=== PATIENT | female | born 2000 | race American Indian/Alaskan Native ===

== ENCOUNTER 2020-06-16 15:21 | Emergency (ER) | payer MEDICAID ==
[2020-06-16 15:31] VITALS: BP 119/81
--- NOTE | 2020-06-16 15:44 | Event Note ---
ED Screening Note Date of service: 06/16/20 Time: 15:42 ED Screening Note: The patient was evaluated in the emergency department for symptoms described in the history of present illness. He/she was evaluated in the context of the global COVID-19 pandemic, which necessitated consideration that the patient might be at risk for infection with the virus that causes COVID-19. Institutional protocols and algorithms that pertain to the evaluation of patients at risk for COVID-19 are in a state of rapid change based on information released by regulatory bodies including the CDC and federal and state organizations. These policies and algorithms were followed during the patient's care in the emergency department. Please note that these policies, procedures and recommendations changed on a rapid basis. 20-year-old -[place] female presents to the emergency room line of back pain and urinary frequency. Patient feels she may have a urinary tract infection. She reports that she is late for her menstrual cycle. She denies any fever chills no nausea no vomiting denies any abdominal pain no vaginal bleeding since vaginal discharge yesterday. This initial assessment/diagnostic orders/clinical plan/treatment(s) is/are subject to change based on patients health status, clinical progression and re- assessment by fellow clinical providers in the ED. Further treatment and workup at subsequent clinical providers discretion. Patient/guardian urged not to elope from the ED as their condition may be serious if not clinically assessed and managed. Initial orders include:
[2020-06-16 16:05] LABS: Bacteria,Urine 1+ /HPF (Negative); Bilirubin,Urine NEG (Negative); Blood,Urine NEG (Negative); Color,Urine Yellow (Yellow); HCG Qualitative,Urine Positive (Negative); Protein,Urine <15 mg/dL mg/dL (Negative); RBC,Urine < 1.0 /HPF (0.0-6.0); Urobilinogen,Urine < 2.0 mg/dL (<2.0); WBC,Urine < 1.0 /HPF (0.0-6.0)
== END 2020-06-16 20:30 | disposition left against medical advice (07) ==
LOC: ED 15:21
DX: Z53.21 Procedure and treatment not carried out due to patient leaving prior to being seen by health care provider (principal)
CPT/HCPCS: 81001; 81025

== ENCOUNTER 2020-06-17 06:59 | Emergency (ER) | payer MEDICAID ==
[2020-06-17 07:48] VITALS: BP 114/71
[2020-06-17 08:30] LABS: Bilirubin,Urine NEG (Negative); Blood,Urine NEG (Negative); Color,Urine Straw (Yellow); Mucus,Urine FEW /HPF; Protein,Urine <15 mg/dL mg/dL (Negative); Urobilinogen,Urine < 2.0 mg/dL (<2.0)
[2020-06-17 08:43] LABS: HCG Qualitative,Urine Positive (Negative)
--- NOTE | 2020-06-17 10:49 | Emergency Department Report ---
<ZURDO ARGUELLES - Last Filed: 06/17/20 10:45> ED General Adult HPI - General Chief complaint: Urogenital-Female Stated complaint: UTI Time Seen by Provider: 06/17/20 10:17 Source: patient Mode of arrival: Ambulatory Limitations: No Limitations - History of Present Illness Initial comments: 20-year-old -[place] female patient presents with complaints of intermittent low back pain and urinary frequency x5 days. She denies any current pain, dysuria/hematuria, vaginal discharge, vaginal bleeding, dyspareunia, nausea/vomiting/diarrhea, or fever/chills/sweats. She also denies any injuries to her back and states she has not tried any OTC medication. Patient states she believes she has a UTI. - Related Data Allergies Allergy/AdvReac Type Severity Reaction Status Date / Time No Known Allergies Allergy Unverified 06/16/20 15:31 ED Review of Systems Constitutional: denies: chills, diaphoresis, fever, malaise, weakness Respiratory: denies: cough, shortness of breath Cardiovascular: denies: chest pain Endocrine: denies: excessive sweating Gastrointestinal: denies: abdominal pain, nausea, vomiting, diarrhea, constipation Genitourinary: frequency. denies: urgency, dysuria, hematuria, discharge, abnormal menses, dyspareunia Musculoskeletal: denies: back pain Skin: denies: rash, lesions, change in color Hematological/Lymphatic: denies: swollen glands ED Past Medical Hx - Past Medical History Previous Medical History?: No - Surgical History Past Surgical History?: No - Social History Smoking Status: Never Smoker Substance Use Type: None ED Physical Exam - General Limitations: No Limitations General appearance: alert, in no apparent distress - Head Head exam: Present: atraumatic, normocephalic - Eye Eye exam: Present: normal appearance. Absent: scleral icterus - Respiratory Respiratory exam: Present: normal lung sounds bilaterally. Absent: respiratory distress - Cardiovascular Cardiovascular Exam: Present: regular rate - GI/Abdominal GI/Abdominal exam: Present: soft, normal bowel sounds. Absent: distended, tenderness, guarding, rebound, rigid - Back Exam Back exam: Present: full ROM. Absent: tenderness, CVA tenderness (R), CVA tenderness (L), paraspinal tenderness, vertebral tenderness - Neurological Exam Neurological exam: Present: alert, oriented X3, normal gait - Psychiatric Psychiatric exam: Present: normal affect, normal mood - Skin Skin exam: Present: warm, dry, intact, normal color. Absent: rash ED Medical Decision Making - Medical Decision Making 20-year-old -[place] female patient presents with complaints of inter mittent low back pain and urinary frequency x5 days. She denies any current pain, dysuria/hematuria, vaginal discharge, vaginal bleeding, dyspareunia, nausea/vomiting/diarrhea, or fever/chills/sweats. She also denies any injuries to her back and states she has not tried any OTC medication. Patient states she believes she has a UTI. LMP was 05/16/2020 per patient. UA is shows 4 WBCs without bacteria. Urine hCG is positive. No indication for ultrasound given physical exam and history. Recommend patient follow-up with [facility] for new -referrals provided. She is well-appearing, her vitals are normal, she is stable for discharge home. Discussed signs and symptoms that should prompt immediate return to the ED in detail with patient who verbalizes understanding. ED Disposition Clinical Impression: Urinary frequency, confirmed by positive urine test Disposition: DC-01 TO HOME OR SELFCARE Is pt being admited?: No Condition: Stable Instructions: (ED), Back Pain (ED) Referrals: [facility] [Provider Group] - 3-5 Days [facility] [Provider Group] - 3-5 Days <MY ROY - Last Filed: 06/19/20 22:26> ED Review of Systems ROS: Stated complaint: UTI Other details as noted in HPI ED Course Vital Signs 06/17/20 06/17/20 07:46 07:48 Temperature 98.9 F Pulse Rate 84 Respiratory 16 Rate Blood Pressure 114/71 O2 Sat by Pulse 99 Oximetry - Reevaluation(s) Reevaluation #1: 06/19/20 22:25 Please note that I am signing this chart administratively. This patient was not specifically discussed with myself while on shift, and I was available for consultation and evaluation while this patient was physically here in the emergency room under the care of the physician medical clerical assistant.. I also called the patient on her personal cell phone number, I left a voicemail for call back, with intentions to instruct the patient to return to the emergency room for sonographic evaluation. Critical care attestation.: If time is entered above; I have spent that time in minutes in the direct care of this critically ill patient, excluding procedure time. ED Disposition Is pt being admited?: No Does the pt Need Aspirin: No
== END 2020-06-17 11:05 | disposition home or self-care (01) ==
LOC: ED 06:59
DX: R35.0 Frequency of micturition (principal); M54.5 Low back pain; Z32.01 Encounter for pregnancy test, result positive
CPT/HCPCS: 81001; 81025; 87086; 99283

== ENCOUNTER 2021-02-22 07:34 | Inpatient (IN) | payer MEDICAID ==
[2021-02-22] MEDS ORDERED: TERBUTALINE 1 MG/1 ML INJ SUB-Q PRN (08:56)
[2021-02-22] MEDS ORDERED: CARBOPROST TROMETHAMINE 250 MCG/1 ML INJ IM PRN (08:56)
[2021-02-22] MEDS ORDERED: OXYTOCIN 10 UNIT/1 ML INJ IM PRN (08:56)
[2021-02-22] MEDS ORDERED: miSOPROStol 200 MCG TAB PR PRN (08:56)
[2021-02-22] MEDS ORDERED: LOPERAMIDE 2 MG CAP PO PRN (08:56)
[2021-02-22] MEDS ORDERED: MINERAL OIL 30 ML ORAL LIQD PO PRN (08:56)
[2021-02-22] MEDS ORDERED: METHYLERGONOVINE MALEATE 0.2 MG/ML VIAL IM PRN (08:56)
[2021-02-22] MEDS ORDERED: LACTATED RINGERS 1,000 ML IV SCH (09:00)
[2021-02-22] MEDS ORDERED: OXYTOCIN DRIP 30 UNITS/500 ML BAG IV SCH ×2 (09:00)
[2021-02-22] MEDS ORDERED: AMPICILLIN/NS 2 GM/100 ML 2 GM/100 ML BAG IV ONE ×2 (09:00→09:01)
[2021-02-22] MEDS ORDERED: LACTATED RINGERS 1,000 ML ONE (09:01)
[2021-02-22] MEDS ORDERED: NALOXONE 2 MG/2 ML INJ IV PRN (09:24)
[2021-02-22] MEDS ORDERED: ePHEDrine SULFATE 50 MG/1 ML INJ IV PRN (09:24)
--- NOTE | 2021-02-22 09:31 | Anesthesia Consultation ---
Anesthesia Consult and Med Hx Date of service: 02/22/21 - Airway Anesthetic Teeth Evaluation: Good ROM Head & Neck: Adequate Mental/Hyoid Distance: Adequate Mallampati Class: Class II Intubation Access Assessment: Probably Good - Pulmonary Exam CTA: Yes - Cardiac Exam Cardiac Exam: RRR - Pre-Operative Health Status ASA Pre-Surgery Classification: ASA2 Proposed Anesthetic Plan: Epidural - Other Systems Hx Alcohol Use: No
[2021-02-22 09:32] LABS: Hematocrit 39.3 % (30.3-42.9); Hemoglobin 12.8 gm/dl (10.1-14.3); Mean Corpuscular HGB Conc 33 % (30-34); Mean Corpuscular Volume 84 fl (79-97); Platelet Count 281 K/mm3 (140-440); Red Blood Count 4.65 M/mm3 (3.65-5.03); Red Cell Distribution Width 14.9 % (13.2-15.2)
--- NOTE | 2021-02-22 09:52 | Progress Note ---
Labor Epidural - Labor Epidural Start Time: 09:44 Stop Time: 09:51 Performed by:: ARA LEES Procedure: Patient is requesting epidural for labor pain. H&P, and labs reviewed. Procedure explained, questions answered, consent obtained. Patient in sitting position with blood pressure cuff and pulse ox on and working. Timeout performed immediately before start of procedure. Sterile chlorahexadine 0.5% prep/drape. 3 mL 1% lidocaine skin wheal at L[3]-L[4]. 18-gauge TriOviztead epidural needle advanced to [id number] with saline at [7] cm. Epidural catheter advanced to [12] cm, negative aspiration for blood and csf, negative test dose 3 ml 1.5% lidocaine with epinephrine. Epidural dexmedetomidine [30] mcg administered. Sterile steri-strips and tegaderm applied, followed by tape reinforcement. Patient tolerated procedure well. Ting MAY
[2021-02-22] MEDS ORDERED: LIDOCAINE (2%) 20 MG/1 ML VIAL 20 ML MDV INFILTRATI ONE (10:00)
[2021-02-22] MEDS ORDERED: fentaNYL-BUPIV 2 MCG/ML-0.125% 200 MCG/100 ML BAG EPIDURAL SCH (10:00)
[2021-02-22] MEDS ORDERED: AMPICILLIN/NS 1 GM/50 ML 1 GM/50 ML BAG IV SCH (10:00)
[2021-02-22] MEDS: ePHEDrine SULFATE 50 MG/1 ML INJ IV PRN ×2 (10:07→10:13)
--- NOTE | 2021-02-22 12:45 | History and Physical Report ---
History of Present Illness Date of examination: 02/22/21 Date of admission: 02/22/21 09:11 Chief complaint: I am in labor History of present illness: Patient is a 21-year-old 2 para 1 who presents to labor and delivery with complaint of regular contractions. She was found to be 5 cm in triage. She receives care with [facility] since 10 weeks . All her labs have been within normal limits. She is GBS positive. Past History Past Medical History: no pertinent history Past Surgical History: no surgical history Family/Genetic History: none Social history: single (Minimal social support) - Obstetrical History Expected Date of Delivery: 02/26/21 Actual Gestation: 39 Week(s) 3 Day(s) : 2 Number of Living Children: 1 Medications and Allergies Allergies Allergy/AdvReac Type Severity Reaction Status Date / Time No Known Allergies Allergy Verified 02/22/21 09:15 Active Meds: Active Medications Carboprost Tromethamine (Carboprost Tromethamine 250 Mcg/1 Ml Inj) 250 mcg IM ONCE PRN PRN Reason: Uterine Bleeding Ephedrine Sulfate (Ephedrine Sulfate 50 Mg/1 Ml Inj) 10 mg IV Q2M PRN PRN Reason: Hypotension Last Admin: 02/22/21 10:13 Dose: 10 mg Documented by: Ampicillin Sodium (Ampicillin/Ns 1 Gm/50 Ml) 1 gm in 50 mls @ 100 mls/hr IV Q4H [place]; Protocol Oxytocin/Sodium Chloride (Pitocin/Ns 30 Unit/500ml) 30 units in 500 mls @ 2 mls/hr IV TITR [place]; Protocol Lactated Ringer's (Lactated Ringers) 1,000 mls @ 125 mls/hr IV DIRECT [place] Last Admin: 02/22/21 10:02 Dose: 1,200 mls/hr Documented by: Oxytocin/Sodium Chloride (Pitocin/Ns 30 Unit/500ml) 30 units in 500 mls @ 40 mls/hr IV TITR [place]; Protocol Last Admin: 02/22/21 12:32 Dose: 165 mls/hr, 165 mls/hr Documented by: Fentanyl/Bupivacaine/Sodium Chlor (Fentanyl-Bupiv 2 Mcg/Ml-0.125%) 200 mcg in 100 mls @ 2 mls/hr EPIDURAL TITR [place]; Protocol Last Admin: 02/22/21 10:17 Dose: 2 mls/hr Documented by: Loperamide HCl (Loperamide 2 Mg Cap) 2 mg PO ONCE PRN PRN Reason: give with Hemabate Methylergonovine Maleate (Methylergonovine Maleate 0.2 Mg/Ml Vial) 0.2 mg IM ONCE PRN PRN Reason: Uterine Bleeding Mineral Oil (Mineral Oil 30 Ml Oral Liqd) 30 ml PO QHS PRN PRN Reason: Constipation Misoprostol (Misoprostol 200 Mcg Tab) 800 mcg [place] ONCE PRN PRN Reason: Uterine Bleeding Naloxone HCl (Naloxone 2 Mg/2 Ml Inj) 0.2 mg IV Q5M PRN PRN Reason: Respiratory sedation Oxytocin (Oxytocin 10 Unit/1 Ml Inj) 10 unit IM ONCE PRN PRN Reason: Uterine Bleeding Terbutaline Sulfate (Terbutaline 1 Mg/1 Ml Inj) 0.25 mg SUB-Q ONCE PRN PRN Reason: Hyperstimulation/Hypertonicity Review of Systems All systems: negative Genitourinary: pelvic pain, contractions - Vital Signs Vital signs: Vital Signs Pulse Pulse Ox 94 H 95 02/22/21 07:49 02/22/21 07:49 Temp Pulse Resp BP Pulse Ox 98.2 F 73 18 113/55 99 02/22/21 09:21 02/22/21 12:34 02/22/21 09:21 02/22/21 12:34 02/22/21 08:34 - Physical Exam Breasts: Cardiovascular: Regular rate, Normal S1, Normal S2 Lungs: Positive: Clear to auscultation, Normal air movement Abdomen: Positive: normal appearance, soft, normal bowel sounds. Negative: distention, tenderness Genitourinary (Female): Positive: normal external genitalia Vulva: both: normal Vagina: Positive: normal moisture. Negative: discharge Cervix: Negative: lesion, discharge Uterus: Positive: normal size, normal contour Adnexa: both: normal Anus/Rectum: Positive: normal perianal skin, heme negative. Negative: rectal mass, hemorrhoids Extremities: Deep Tendon Reflex Grade: Normal +2 - Obstetrical FHR: auscultation normal Cervical Dilatation: 5 Cervical Effacement Percentage: 80 station: -2 Uterine Contraction Frequency (min): 3 Uterine Contraction Pattern: Regular Uterine Tone Measurement Phase: Contraction Uterine Contraction Intensity: Moderate Results Result Diagrams: 02/22/21 08:34 All other labs normal. Assessment and Plan IUP at 39-3/7 weeks here in active labor. Will admit for labor and delivery. Proceed with active management of labor. AROM when needed. Treat for GBS positive status. Anticipate .
--- NOTE | 2021-02-22 13:01 | Procedure Note ---
OB Delivery Note - Delivery Date of Delivery: 02/22/21 Surgeon: JAKOB SHARMA Estimated blood loss: 200cc - Vaginal Delivery presentation: vertex Delivery position: OA Intrapartum events: none Delivery induction: none Delivery monitor: external FHT, external uterine Route of delivery: Delivery placenta: spontaneous Delivery cord: nuchal cord, 3 umbilical vessels Episiotomy: none Delivery laceration: 1st degree Delivery repair: vicryl Anesthesia: epidural Delivery comments: Viable male delivered at 12:23 PM over intact perineum with nuchal cord easily reduced on perineum. Infant had spontaneous cry was placed maternal abdomen. Cord was clamped and cut when done pulsating. Placenta was delivered spontaneously and intact. Small perineal laceration was repaired with 2 sutures of 2-0 Vicryl. Weight of the infant was 7 pounds 2 ounces 3248 g. There was excellent hemostasis. Patient tolerated procedure well - Infant A at 1 minute: 8 at 5 minutes: 9 Infant Gender: Male (3248g)
[2021-02-22] MEDS ORDERED: LANOLIN/ZINC/DIMETHICONE (LANSINOH) 7 GM TP PRN (13:59)
[2021-02-22] MEDS ORDERED: MAGNESIUM HYDROXIDE (MOM) ORAL LIQD UDC PO PRN (13:59)
[2021-02-22] MEDS ORDERED: ONDANSETRON 4 MG/2 ML INJ IV PRN (13:59)
[2021-02-22] MEDS ORDERED: PROMETHAZINE 25 MG RECT SUPP PR PRN (13:59)
[2021-02-22] MEDS ORDERED: HYDROcodone/ACETAMINOPHEN 5-325 MG TAB PO PRN (13:59)
[2021-02-22] MEDS ORDERED: ACETAMINOPHEN 325 MG TAB PO PRN (13:59)
[2021-02-22] MEDS ORDERED: WITCH HAZEL/ GLYCERIN PAD TP PRN (13:59)
[2021-02-22] MEDS ORDERED: diphenhydrAMINE 25 MG CAP PO PRN (13:59)
[2021-02-22] MEDS ORDERED: PROMETHAZINE 25 MG TAB PO PRN (13:59)
[2021-02-22] MEDS: IBUPROFEN 600 MG TAB PO SCH ×2 (16:10→23:19)
[2021-02-22] MEDS: DOCUSATE SODIUM 100 MG CAP PO SCH (22:00)
[2021-02-23 03:40] LABS: Hematocrit 33.8 % (30.3-42.9); Hemoglobin 11.6 gm/dl (10.1-14.3)
[2021-02-23] MEDS: IBUPROFEN 600 MG TAB PO SCH ×4 (05:18→23:15)
--- NOTE | 2021-02-23 10:14 | Post Anesthesia Evaluation ---
- Post Anesthesia Evaluation Patient Participated: Yes Airway Patent: Yes Stable Respiratory Function: Yes Nausea/Vomiting: No Temp > 96.8F: Yes Pain Manageable: Yes Adequeate Hydration: Yes Anesthesia Complications: No Block Receding Appropriately: Yes
[2021-02-23] MEDS: DOCUSATE SODIUM 100 MG CAP PO SCH (10:38)
[2021-02-23] MEDS: PRENATAL VIT27-FE FUMARATE-FOLIC ACID VIT TAB PO SCH (10:38)
--- NOTE | 2021-02-23 14:11 | Progress Note ---
Assessment and Plan PPD 1 s/p . Doing well. Baby is not feeding well. Mom is otherwise ok. Plan for discharge on tomorrow. Subjective - Subjective Date of service: 02/23/21 Interval history: Patient is a 21-year-old 2 para 1 who presents to labor and delivery with complaint of regular contractions. She was found to be 5 cm in triage. She receives care with [facility] since 10 weeks . All her labs have been within normal limits. She is GBS positive. Patient reports: appetite normal, voiding normally, pain well controlled, ambulating normally [place]: doing well Objective - Vital Signs Latest vital signs: Vital Signs Temp Pulse Resp BP BP Pulse Ox 02/23/21 00:52 97.8 F 74 18 99/57 99 02/22/21 20:15 98.3 F 76 20 113/77 98 02/22/21 17:00 97.8 F 82 18 108/70 99 Intake and Output 02/22/21 02/23/21 02/23/21 22:59 06:59 14:59 Intake Total 320 Output Total 1300 200 Balance -1300 -200 320 Intake: Oral 320 Output: Urine 1300 200 Void 1300 200 Other: Total, Intake Amount 320 Total, Output Amount 400 200 # Voids Void 1 1 1 - Exam Breasts: Present: deferred Cardiovascular: Present: Regular rate, Normal S1, Normal S2 Abdomen: Present: normal appearance, soft, normal bowel sounds Uterus: Present: normal, firm, fundal height below umbilicus Extremities: Present: normal
[2021-02-23] MEDS ORDERED: oxyCODONE /ACETAMINOPHEN 5-325MG TAB PO NR (14:35)
[2021-02-24] MEDS: DOCUSATE SODIUM 100 MG CAP PO SCH (00:09)
[2021-02-24] MEDS: IBUPROFEN 600 MG TAB PO SCH ×2 (05:01→11:24)
--- NOTE | 2021-02-24 09:09 | Discharge Summary ---
Providers - Providers Date of Admission: 02/22/21 09:11 Date of discharge: 02/24/21 Attending physician: JOHANA QUIROGA Primary care physician: JOHANA QUIROGA Hospitalization Reason for admission: active labor, IUP at term Delivery: Discharge diagnosis: IUP at term delivered Hospital course: Patient presented in active labor had a spontaneous vaginal delivery. Her postoperative course was uneventful. Condition at discharge: Good Disposition: DC-01 TO HOME OR SELFCARE - Discharge Diagnoses (1) Vaginal delivery Status: Acute Plan - Discharge Medications Prescriptions: Ibuprofen [Motrin] 800 mg PO Q8HR PRN #30 tablet PRN Reason: Pain , Severe (7-10) HYDROcodone/APAP 5-325 [[place] 5/325] 1 each PO Q6HR PRN #15 tablet PRN Reason: Pain - Provider Discharge Summary Activity: no sex for 6 weeks, no heavy lifting 4 weeks, no strenuous exercise Diet: routine Instructions: routine Additional instructions: [] Smoking cessation referral if applicable(refer to patient education folder for contact #) [] Refer to [facility] Booklet Call your doctor immediately for: * Fever > 100.5 * Heavy vaginal bleeding ( >1 pad per hour) * Severe persistent headache * Shortness of breath * Reddened, hot, painful area to leg or breast * Schedule visit in 4 weeks - Follow up plan
--- NOTE | 2021-02-24 09:09 | Progress Note ---
Assessment and Plan - Patient Problems (1) Vaginal delivery Current Visit: Yes Status: Acute Plan to address problem: Patient doing well Discharge home Subjective - Subjective Date of service: 02/24/21 Interval history: Patient without any significant complaints. Patient reports: appetite normal, voiding normally, pain well controlled [place]: doing well Objective - Vital Signs Latest vital signs: Vital Signs Temp Pulse Resp BP BP Pulse Ox 02/24/21 08:00 98 F 77 20 104/64 02/24/21 00:06 97.5 F L 78 20 112/77 99 02/23/21 15:40 97.4 F L 86 20 112/66 Intake and Output 02/23/21 02/24/21 02/24/21 22:59 06:59 14:59 Intake Total 560 240 240 Balance 560 240 240 Intake: Oral 560 240 Intake, Free Water 240 Other: Total, Intake Amount 200 240 # Voids Void 1 1
[2021-02-24] MEDS: PRENATAL VIT27-FE FUMARATE-FOLIC ACID VIT TAB PO SCH (11:23)
[2021-02-24 13:43] VITALS: BP 129/80
== END 2021-02-24 13:20 | disposition home or self-care (01) | DRG 775 ==
LOC: TRG 07:34 → APU 07:35 → LD 08:51 → TRG 09:11 → OB 13:40
PROVIDERS: ADMIT Obstetrics & Gynecology; ATTEND Obstetrics & Gynecology
PROC: 10E0XZZ Delivery of Products of Conception, External Approach (ICD-10-PCS; principal; 2021-02-22)
PROC: 0HQ9XZZ Repair Perineum Skin, External Approach (ICD-10-PCS; 2021-02-22)
PROC: 3E0R3BZ Introduction of Anesthetic Agent into Spinal Canal, Percutaneous Approach (ICD-10-PCS; 2021-02-22)
PROC: 00HU33Z Insertion of Infusion Device into Spinal Canal, Percutaneous Approach (ICD-10-PCS; 2021-02-22)
DX: O69.81X0 Labor and delivery complicated by cord around neck, without compression, not applicable or unspecified (principal); O99.824 Streptococcus B carrier state complicating childbirth; Z37.0 Single live birth; Z3A.39 39 weeks gestation of pregnancy; Z20.822 Contact with and (suspected) exposure to COVID-19; O70.0 First degree perineal laceration during delivery
CPT/HCPCS: 36415; 85014; 85018; 85027; 86850; 86900; 86901; G0378; A6250; J0290; J2590; J7120; U0003

== ENCOUNTER 2021-02-27 10:05 | Emergency (ER) | payer MEDICAID ==
[2021-02-27] MEDS ORDERED: MORPHINE 4 MG/1 ML INJ IV ONE (12:38)
[2021-02-27] MEDS ORDERED: ONDANSETRON 4 MG/2 ML INJ IV ONE (12:38)
[2021-02-27] MEDS ORDERED: SODIUM CHLORIDE 0.9% 1000 ML 1,000 ML IV ONE (12:38)
--- NOTE | 2021-02-27 12:44 | Emergency Department Report ---
ED Headache HPI - General Chief Complaint: Headache Stated Complaint: SPINAL HEADACHES Time Seen by Provider: 02/27/21 12:34 Source: patient - History of Present Illness Initial Comments: Ms. Perez is a 21 years old female 2 para 2, 1 week . Patient presented to the ER complaining of headache described as global. Patient denied any neck pain, fever or chills. No nausea or vomiting. Patient stated that she had spinal anesthesia. Patient currently denying any weakness, numbness or tingling sensation. No bowel or bladder incontinence. Patient also denied any abnormal vaginal bleeding. Timing/Duration: 1 week Quality: moderate Head Injury Location: global Recent Head Trauma: no recent headache/trauma Associated Symptoms: denies: denies symptoms, confusion, fatigue, facial pain, fever/chills, flushing, loss of consciousness, nausea/vomiting, nasal congestion, nasal drainage, numbness in legs/feet, rash, seizures, sinus infection, stiff neck, vision changes, weakness, other Allergies/Adverse Reactions: Allergies No Known Allergies Allergy (Verified 02/27/21 10:06) Home Medications: Ambulatory Orders HYDROcodone/APAP 5-325 [[place] 5/325] 1 each PO Q6HR PRN #15 tablet 02/24/21 Ibuprofen [Motrin] 800 mg PO Q8HR PRN #30 tablet 02/24/21 ED Review of Systems ROS: Stated complaint: SPINAL HEADACHES Other details as noted in HPI Comment: All other systems reviewed and negative Constitutional: denies: chills, fever Respiratory: denies: cough, shortness of breath, SOB with exertion Gastrointestinal: denies: abdominal pain, nausea, vomiting Musculoskeletal: denies: back pain Neurological: denies: headache, weakness Psychiatric: denies: depression, suicidal thoughts ED Past Medical Hx - Past Medical History Previous Medical History?: No - Surgical History Past Surgical History?: No - Social History Smoking Status: Never Smoker Substance Use Type: None - Medications Home Medications: Home Medications Medication Instructions Recorded Confirmed Last Taken Type HYDROcodone/APAP 5-325 [[place] 1 each PO Q6HR PRN #15 tablet 02/24/21 Unknown Rx 5/325] Ibuprofen [Motrin] 800 mg PO Q8HR PRN #30 tablet 02/24/21 Unknown Rx ED Physical Exam - General Limitations: No Limitations General appearance: alert, in no apparent distress - Head Head exam: Present: atraumatic, normocephalic, normal inspection - Eye Eye exam: Present: normal appearance, PERRL Pupils: Present: normal accommodation - ENT ENT exam: Present: normal exam, normal orophraynx, mucous membranes moist - Neck Neck exam: Present: normal inspection, full ROM. Absent: tenderness, meningismus, lymphadenopathy, thyromegaly - Respiratory Respiratory exam: Present: normal lung sounds bilaterally - Cardiovascular Cardiovascular Exam: Present: regular rate, normal rhythm, normal heart sounds - GI/Abdominal GI/Abdominal exam: Present: soft, normal bowel sounds. Absent: distended, tenderness, guarding, rebound, rigid, organomegaly, mass, bruit, pulsatile mass, hernia - Extremities Exam Extremities exam: Present: normal inspection, full ROM, normal capillary refill. Absent: tenderness, pedal edema, joint swelling, calf tenderness - Back Exam Back exam: Present: normal inspection, full ROM. Absent: CVA tenderness (R), CVA tenderness (L) - Neurological Exam Neurological exam: Present: alert, oriented X3, CN II-XII intact, normal gait, reflexes normal. Absent: motor sensory deficit - Psychiatric Psychiatric exam: Present: normal mood - Skin Skin exam: Present: warm, dry, intact, normal color ED Course Vital Signs 02/27/21 02/27/21 02/27/21 10:09 13:06 13:16 Temperature 98.8 F Pulse Rate 102 H Respiratory 18 Rate Blood Pressure 126/87 114/63 114/63 O2 Sat by Pulse 97 98 Oximetry 02/27/21 02/27/21 02/27/21 13:30 13:46 14:00 Temperature Pulse Rate Respiratory Rate Blood Pressure 109/73 109/73 108/72 O2 Sat by Pulse 99 98 100 Oximetry 02/27/21 02/27/21 02/27/21 14:16 14:30 14:46 Temperature Pulse Rate Respiratory Rate Blood Pressure 108/72 126/88 126/88 O2 Sat by Pulse 99 97 98 Oximetry 02/27/21 02/27/21 02/27/21 15:00 15:16 15:30 Temperature Pulse Rate Respiratory Rate Blood Pressure 119/79 119/79 119/77 O2 Sat by Pulse 98 98 98 Oximetry 02/27/21 02/27/21 02/27/21 15:46 16:00 16:16 Temperature Pulse Rate Respiratory Rate Blood Pressure 119/77 123/84 123/84 O2 Sat by Pulse 99 96 100 Oximetry ED Medical Decision Making - Lab Data Result diagrams: 02/27/21 12:54 02/27/21 12:54 - Medical Decision Making Ms. Perez is a 21 years old female 2 para 2, 1 week . Patient presented to the ER complaining of headache described as global. Patient denied any neck pain, fever or chills. No nausea or vomiting. Patient stated that she had spinal anesthesia. Patient currently denying any weakness, numbness or tingling sensation. No bowel or bladder incontinence. Patient also denied any abnormal vaginal bleeding. Patient received normal saline, morphine and Zofran. Patient stated that her headache is completely resolved. Labs reviewed and is unremarkable. Patient advised to follow-up with her primary doctor in the next 2 to 3 days and to return to the ER if she develop any new symptoms. Critical care attestation.: If time is entered above; I have spent that time in minutes in the direct care of this critically ill patient, excluding procedure time. ED Disposition Clinical Impression: Acute headache Disposition: DC-01 TO HOME OR SELFCARE Is pt being admited?: No Condition: Stable Instructions: Spinal Headache Referrals: PRIMARY CARE, [Primary Care Provider] - 3-5 Days
[2021-02-27 13:38] LABS: Basophils % (Auto) 0.2 % (0.0-1.8); Eosinophils # (Auto) 0.1 K/mm3 (0.0-0.4); Eosinophils % (Auto) 0.6 % (0.0-4.3); Hematocrit 37.8 % (30.3-42.9); Hemoglobin 12.7 gm/dl (10.1-14.3); Lymphocytes # (Auto) 1.6 K/mm3 (1.2-5.4); Lymphocytes % (Auto) 20.2 % (13.4-35.0); Mean Corpuscular HGB Conc 34 % (30-34); Mean Corpuscular Volume 84 fl (79-97); Monocytes # (Auto) 0.5 K/mm3 (0.0-0.8); Platelet Count 320 K/mm3 (140-440)
[2021-02-27 13:43] LABS: Blood Urea Nitrogen 8 mg/dL (7-17); Calcium 9.5 mg/dL (8.4-10.2); Hemolysis Index 6
[2021-02-27 13:57] LABS: BUN/Creatinine Ratio 13
[2021-02-27 17:24] VITALS: BP 151/88
== END 2021-02-27 17:26 | disposition home or self-care (01) ==
LOC: ED 10:05
DX: O89.4 Spinal and epidural anesthesia-induced headache during the puerperium (principal); Z79.1 Long term (current) use of non-steroidal anti-inflammatories (NSAID); Z79.899 Other long term (current) drug therapy
CPT/HCPCS: 36415; 80048; 85025; 96361; 96374; 96375; 99283; J2270; J2405; J7030